=== PATIENT | male | born 1960 | race Caucasian/White ===

== ENCOUNTER 2016-12-07 21:53 | Emergency (ER) | payer OTHER ==
[~2016-12-07] VITALS: Ht 177.8 cm; Wt 83.9 kg
[~2016-12-07 21:53] MED LIST: LEVO500T59 PO; Nicotine TD; PALI156D; PANT40TA5 PO; PRED20TA PO; SLOW RELEASE I142 MG PO
--- NOTE | 2016-12-07 22:49 | PHYS DOC ---
Past Medical History Past Medical History: Cancer, COPD, Other Additional Past Medical Histor: TONGUE CA Past Surgical History: Other Additional Past Surgical Histo: TRACH PLACEMENT, GRAFTS FOR TONGUE CA Alcohol Use: None Drug Use: None Adult General Chief Complaint Chief Complaint: POST-OP PROBLEM HPI HPI Patient is a 56 year old male who presents with complaint of dislodged tracheostomy tube. Patient has history of tongue cancer and had the tracheostomy and PEG placed on November 15, 2016. Patient states that he has had no difficulty with the tracheostomy or PEG. Patient states that approximately 15 minutes prior to arrival while he was cleaning himself the tracheostomy became dislodged. Patient states that he is having no trouble breathing and came to the emergency department to have it replaced. Patient denies any other complaints. Review of Systems Review of Systems Constitutional: Denies fever or chills [] Eyes: Denies change in visual acuity, redness, or eye pain [] HENT: Dislodged tracheostomy tube [] Respiratory: Denies cough or shortness of breath [] Cardiovascular: Denies chest pain or edema [] GI: Denies abdominal pain, nausea, vomiting, bloody stools or diarrhea [] : Denies dysuria or hematuria [] Musculoskeletal: Denies back pain or joint pain [] Integument: Denies rash or skin lesions [] Neurologic: Denies headache, focal weakness or sensory changes [] Allergies Allergies Allergies Coded Allergies Type Severity Reaction Last Updated Verified Penicillins Allergy Intermediate rash 09/18/15 Yes codeine Allergy Intermediate RASH 09/18/15 Yes Physical Exam Physical Exam Constitutional: Alert, afebrile, no acute distress. [] HENT: Normocephalic, atraumatic, bilateral external ears normal, oropharynx moist, nose normal. [] Eyes: PERRLA, EOMI, conjunctiva normal, no discharge. [] Neck: Normal range of motion, tracheostomy site without bleeding or edema, no tenderness, supple, no stridor. [] Cardiovascular:Heart rate regular rhythm, no murmur [] Lungs & Thorax: Bilateral breath sounds clear to auscultation [] Abdomen: Left-sided PEG tube in place, Bowel sounds normal, soft, no tenderness , no masses, no pulsatile masses. [] Skin: Warm, dry, no erythema, no rash. [] Back: No tenderness, no CVA tenderness. [] Extremities: No tenderness, no cyanosis, no clubbing, ROM intact, no edema. [] Neurologic: Alert and oriented X 3, normal motor function, normal sensory function, no focal deficits noted. [] Current Patient Data Vital Signs Vital Signs Date Time Temp Pulse Resp B/P (MAP) Pulse Ox O2 Delivery O2 Flow Rate FiO2 12/07/16 22:04 97.8 98 16 130/59 (82) 96 Room Air 97.8 EKG EKG Not performed [] Radiology/Procedures Radiology/Procedures Not performed [] Course & Med Decision Making Course & Med Decision Making Pertinent Labs and Imaging studies reviewed. (See chart for details) The patient's tracheostomy tube was replaced by respiratory therapy. Immediate evaluation after replacement shows a patient in no acute distress with a proper functioning tracheostomy. The patient states he feels well and is ready to go home. Patient was discharged with recommended follow-up in the next 3-5 days with primary doctor for reevaluation and return to emergency department for any worsening symptoms. Patient voiced understanding and in agreement with treatment plan. Dragon Disclaimer Dragon Disclaimer This electronic medical record was generated, in whole or in part, using a voice recognition dictation system. Departure Departure Impression: Primary Impression: Tracheostomy complication Disposition: 01 HOME, SELF-CARE Condition: IMPROVED Referrals: ORA RUTLEDGE MD (PCP) Patient Instructions: Care of a Tracheostomy Tube Additional Instructions: Follow-up in 3-5 days with the primary doctor. Return emergency department for any worsening symptoms. Problem Qualifiers Primary Impression: Tracheostomy complication Tracheostomy complication: unspecified Qualified Codes: J95.00 - Unspecified tracheostomy complication JOE FOUNTAIN MD Dec 07, 2016 22:49
[2016-12-07 23:09] VITALS: BP 130/59
== END 2016-12-07 23:09 | disposition home or self-care (01) ==
LOC: ER 21:53
DX: J95.03 Malfunction of tracheostomy stoma (principal); J44.9 Chronic obstructive pulmonary disease, unspecified; Z88.0 Allergy status to penicillin; Z88.5 Allergy status to narcotic agent; Y73.3 Surgical instruments, materials and gastroenterology and urology devices (including sutures) associated with adverse incidents
CPT/HCPCS: 31502; 99284-25